=== PATIENT | female | born 1995 | race Two or more races ===

== ENCOUNTER 2020-04-28 18:41 | Emergency (ER) | payer OTHER ==
[~2020-04-28] VITALS: Ht 160 cm; Wt 76.4 kg
[2020-04-28 18:46] VITALS: BP 139/92
== END 2020-04-28 19:42 | disposition home or self-care (01) ==
LOC: ER 18:46
DX: B34.9 Viral infection, unspecified (principal); J34.89 Other specified disorders of nose and nasal sinuses; R06.02 Shortness of breath; R05 Cough; Z20.828 Contact with and (suspected) exposure to other viral communicable diseases
CPT/HCPCS: 36415; 99281

== ENCOUNTER 2020-04-30 10:08 | Emergency (ER) | payer OTHER ==
[~2020-04-30] VITALS: Ht 160 cm; Wt 76.4 kg
[2020-04-30 10:14] VITALS: BP 113/72
== END 2020-04-30 11:23 | disposition home or self-care (01) ==
LOC: ER 10:08
DX: Z13.89 Encounter for screening for other disorder (principal)
CPT/HCPCS: 99281

== ENCOUNTER 2021-04-18 08:33 | Emergency (ER) | payer OTHER ==
[~2021-04-18] VITALS: Ht 160 cm; Wt 76.4 kg
[2021-04-18 08:36] VITALS: BP 129/82
== END 2021-04-18 10:32 | disposition home or self-care (01) ==
LOC: ER 08:33
DX: S93.401A Sprain of unspecified ligament of right ankle, initial encounter (principal); M25.571 Pain in right ankle and joints of right foot; X58.XXXA Exposure to other specified factors, initial encounter; Y93.89 Activity, other specified; Y92.89 Other specified places as the place of occurrence of the external cause; Y99.8 Other external cause status
CPT/HCPCS: 73610; 99283

== ENCOUNTER 2021-04-18 12:28 | Emergency (ER) | payer OTHER ==
[~2021-04-18] VITALS: Ht 160 cm; Wt 76.4 kg
[2021-04-18 12:35] VITALS: BP 130/79
== END 2021-04-18 14:20 | disposition home or self-care (01) ==
LOC: ER 12:29
DX: S99.911D Unspecified injury of right ankle, subsequent encounter (principal); R93.89 Abnormal findings on diagnostic imaging of other specified body structures; X58.XXXD Exposure to other specified factors, subsequent encounter
CPT/HCPCS: 73630; 99283

== ENCOUNTER → 2021-05-19 | Emergency (ER) | payer OTHER ==
[~2021-05-19] VITALS: Ht 160 cm; Wt 76.4 kg
[2021-05-19 17:50] VITALS: BP 146/103
== END | disposition home or self-care (01) ==
LOC: ER 17:47
DX: T19.2XXA Foreign body in vulva and vagina, initial encounter (principal); X58.XXXA Exposure to other specified factors, initial encounter; Y93.89 Activity, other specified; Y92.89 Other specified places as the place of occurrence of the external cause; Y99.8 Other external cause status
CPT/HCPCS: 99284

== ENCOUNTER 2021-07-24 08:21 | Emergency (ER) | payer OTHER ==
[~2021-07-24] VITALS: Ht 160 cm; Wt 78.2 kg
[2021-07-24 08:35] VITALS: BP 117/79
== END 2021-07-24 09:54 | disposition home or self-care (01) ==
LOC: ER 08:22
DX: J06.9 Acute upper respiratory infection, unspecified (principal); Z20.822 Contact with and (suspected) exposure to COVID-19; J02.9 Acute pharyngitis, unspecified; R07.89 Other chest pain; R09.81 Nasal congestion
CPT/HCPCS: 87635; 99283; C9803

== ENCOUNTER 2022-06-08 08:52 | Emergency (ER) | payer OTHER ==
[~2022-06-08] VITALS: Ht 160 cm; Wt 78.3 kg
[2022-06-08 08:58] VITALS: BP 117/81
[2022-06-08] MEDS ORDERED: AMOX-117 PO (11:47)
== END 2022-06-08 11:56 | disposition home or self-care (01) ==
LOC: ER 08:53
DX: U07.1 COVID-19 (principal); H65.191 Other acute nonsuppurative otitis media, right ear; Z79.899 Other long term (current) drug therapy
CPT/HCPCS: 87081; 87635; 87880; 99283; C9803

== ENCOUNTER 2022-09-08 07:00 | Emergency (ER) | payer OTHER ==
[~2022-09-08] VITALS: Ht 160 cm; Wt 76.4 kg
[2022-09-08 07:02] VITALS: BP 137/85
[2022-09-08] MEDS ORDERED: naproxen 500mg tablet PO ONE (07:55)
[2022-09-08] MEDS ORDERED: HYDROcodone/acetaminophen 10/325mg tab PO ONE (07:55)
--- NOTE | 2022-09-08 08:20 | NUR ---
DR DE LEON AT [facility].
[2022-09-08] MEDS ORDERED: HYDR-3965 PO (09:39)
[2022-09-08] MEDS ORDERED: NAPR-56 PO (10:30)
== END 2022-09-08 10:50 | disposition home or self-care (01) ==
LOC: ER 07:01
DX: S92.352A Displaced fracture of fifth metatarsal bone, left foot, initial encounter for closed fracture (principal); Z79.899 Other long term (current) drug therapy; X50.1XXA Overexertion from prolonged static or awkward postures, initial encounter; Y93.89 Activity, other specified; Y92.89 Other specified places as the place of occurrence of the external cause; Y99.8 Other external cause status
CPT/HCPCS: 73610; 99284; A6446; A6449; L1930

== ENCOUNTER 2022-10-07 21:17 | Emergency (ER) | payer OTHER ==
[~2022-10-07] VITALS: Ht 160 cm; Wt 76.4 kg
[~2022-10-07 21:17] MED LIST: HYDR-3965 PO; NAPR-56 PO
[2022-10-07 21:25] VITALS: BP 111/78
[2022-10-07 22:05] LABS: BASOPHILS % (AUTO) 0.1 % (0-1); EOSINOPHILS # (AUTO) 0.1 X10'3 (0-0.9); EOSINOPHILS % (AUTO) 0.3 % (0-6); HEMATOCRIT 48.8 % (35.0-45.0); HEMOGLOBIN 15.9 g/dl (12.0-16.0); LYMPHOCYTES # (AUTO) 0.9 X10'3 (1.1-4.8); LYMPHOCYTES % (AUTO) 4.6 % (21-51); MEAN CORPUSCULAR HEMOGLOBIN 29.7 PG (27.0-31.0); MEAN CORPUSCULAR HGB CONC 32.6 g/dL (33.0-36.5); MEAN CORPUSCULAR VOLUME 91.1 FL (78-98); MEAN PLATELET VOLUME 8.2 FL (7.4-10.4); MONOCYTES # (AUTO) 0.9 X10'3 (0-0.9); MONOCYTES % (AUTO) 4.6 % (2-12); NEUTROPHILS # (AUTO) 17.2 X10'3 (1.8-7.7); NEUTROPHILS % (AUTO) 90.4 % (42-75); PLATELET COUNT 241 X10'3 (140-440); RED BLOOD COUNT 5.35 X10'6 (4.20-5.60); RED CELL DISTRIBUTION WIDTH 13.5 % (11.5-14.5)
[2022-10-07 22:13] LABS: URINE HCG NEGATIVE (NEG)
[2022-10-07 22:15] LABS: CLARITY,URINE SLIGHTLY CLOUDY (Clear); COLOR,URINE YELLOW (Yellow); GLUCOSE, URINE NEGATIVE (Neg); KETONES,URINE NEGATIVE (Neg); LEUKOCYTE ESTERASE ,URINE NEGATIVE (Neg); NITRITES, URINE NEGATIVE (Neg); OCCULT BLOOD,URINE NEGATIVE (Neg); PROTEIN,URINE NEGATIVE (Neg); UROBILINOGEN,URINE 0.2 E.U/dL (0.2-1.0)
[2022-10-07 22:17] LABS: ALANINE AMINOTRANSFERASE 23 U/L (12-78); ALBUMIN 3.8 G/DL (3.4-5.0); ALKALINE PHOSPHATASE 66 IU/L (46-116); ANION GAP 12 (8-16); ASPARTATE AMINO TRANSFERASE 21 U/L (10-37); BILIRUBIN,TOTAL 0.2 MG/DL (0.1-1.0); BLOOD UREA NITROGEN 20 MG/DL (7-18); BUN/CREATININE RATIO 28.2 (10.0-20.0); CALCIUM 8.7 MG/DL (8.5-10.1); CHLORIDE 105 MMOL/L (99-107); CREATININE 0.71 MG/DL (0.40-0.90); GLUCOSE 110 MG/DL (70-104); LIPASE 109 U/L (73-393); POTASSIUM 3.9 MMOL/L (3.5-5.1); SODIUM 139 MMOL/L (135-145); TOTAL CARBON DIOXIDE 21.6 MMOL/L (24-32); TOTAL PROTEIN 7.6 G/DL (6.4-8.2); eGFR > 90 ML/MIN
[2022-10-07 22:20] LABS: MUCUS STRANDS MANY /LPF (Neg); SQUAMOUS EPITHELIAL CELL,UR MANY /LPF (FEW); UA COLLECTION TYPE CLN CATCH MIDSTREAM
[2022-10-07 22:21] LABS: BACTERIA,URINE 1+ /HPF (Neg); RBC,URINE 0-2 /HPF (0-2); WBC,URINE 0-4 /HPF (0-4)
[2022-10-07 22:22] LABS: AMORPHOUS URATES 1+
== END 2022-10-08 01:16 | disposition home or self-care (01) ==
LOC: ER 21:19
DX: R10.13 Epigastric pain (principal); R11.2 Nausea with vomiting, unspecified; R50.9 Fever, unspecified; Z79.899 Other long term (current) drug therapy
CPT/HCPCS: 36415; 76705; 80053; 81001; 81025; 83690; 85025; 99284

== ENCOUNTER 2023-04-19 16:33 | Emergency (ER) | payer OTHER ==
[~2023-04-19] VITALS: Ht 160 cm; Wt 86.4 kg
[2023-04-19 16:34] VITALS: BP 118/50; PULSE 65; RESP 16; TEMP 98.5; O2SAT 98
--- NOTE | 2023-04-19 18:55 | NUR ---
This RN requested pain meds for pt rating pain 8/10 in ankle, ERPA aware. Awaiting orders.
[2023-04-19] MEDS ORDERED: ketorolac trometh inj. 60 MG/2 ML VIAL IM ONE (19:40)
[2023-04-19] MEDS ORDERED: NAPR-1154 PO (20:49)
== END 2023-04-19 21:13 | disposition home or self-care (01) ==
LOC: ER 16:33
DX: S93.601A Unspecified sprain of right foot, initial encounter (principal); X58.XXXA Exposure to other specified factors, initial encounter; Y93.89 Activity, other specified; Y92.89 Other specified places as the place of occurrence of the external cause; Y99.8 Other external cause status
CPT/HCPCS: 73610; 73630; 73700; 99284; L4360

== ENCOUNTER 2023-09-09 10:54 | Emergency (ER) | payer OTHER ==
[~2023-09-09] VITALS: Ht 160 cm; Wt 82.7 kg
[~2023-09-09 10:54] MED LIST changes: -HYDR-3965 PO; +NAPR-1154 PO; -NAPR-56 PO
[2023-09-09] MEDS ORDERED: NAPR-56 PO (12:18)
[2023-09-09] MEDS ORDERED: CYCL-1 PO (12:18)
[2023-09-09] MEDS: diazepam inj 5 MG/ML inj. IM ONE (12:37)
[2023-09-09] MEDS: ketorolac trometh. 30mg/ml inj. IM ONE (12:37)
[2023-09-09 12:58] VITALS: BP 130/76; PULSE 75; RESP 16; TEMP 98.5; O2SAT 99
== END 2023-09-09 12:59 | disposition home or self-care (01) ==
LOC: ER 10:55
DX: S39.012A Strain of muscle, fascia and tendon of lower back, initial encounter (principal); Z79.899 Other long term (current) drug therapy; X58.XXXA Exposure to other specified factors, initial encounter; Y93.89 Activity, other specified; Y92.89 Other specified places as the place of occurrence of the external cause; Y99.8 Other external cause status
CPT/HCPCS: 72100; 96372; 99284; J1885; J3360